=== PATIENT | female | born 2005 | race Caucasian/White ===

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

== ENCOUNTER → 2024-02-26 | Outpatient (CLI) | payer OTHER ==
[~2024-02-26] MED LIST changes: +FLUO-365; -FLUO20CA22
[2024-02-26 12:40] LABS: APPEARANCE, URINE HAZY (CLEAR); BACTERIA, URINE AUTO 1+ (NEGATIVE); BILIRUBIN, URINE AUTO NEGATIVE (NEGATIVE); BLOOD, URINE BLOOD 1+ (NEGATIVE); COLOR, URINE YELLOW (YELLOW); GLUCOSE, URINE (UA) AUTO NEGATIVE (NEGATIVE); KETONE, URINE AUTO NEGATIVE (NEGATIVE); LEUKOCYTE ESTERASE, URINE AUTO NEGATIVE (NEGATIVE); MUCUS, URINE SMALL (NEGATIVE); NITRITE, URINE AUTO NEGATIVE (NEGATIVE); PROTEIN, URINE AUTO 3+ mg/dL (NEGATIVE); RBC, URINE AUTO 3 /HPF (0-3); SPECIFIC GRAVITY URINE AUTO 1.019 (1.002-1.035); SQUAMOUS EPITHELIAL CELL UR AU 4 /HPF (0-6); UROBILINOGEN, URINE AUTO 0.2 mg/dL (0.0-2.0); WBC, URINE AUTO 2 /HPF (0-3)
[2024-02-26 13:11] LABS: THYROID STIMULATING HORMONE 0.987 uIU/ML (0.48-4.17)
[2024-02-26 13:21] LABS: ALBUMIN 3.3 G/DL (3.2-5.2); ALKALINE PHOSPHATASE 61 U/L (46-116); ALT/SGPT 18 U/L (7.0-40); AST/SGOT 10 U/L (<34); BILIRUBIN,TOTAL 0.3 MG/DL (0.3-1.2); BLOOD UREA NITROGEN 10 MG/DL (9-23); CALCIUM LEVEL 9.2 MG/DL (8.5-10.1); CARBON DIOXIDE LEVEL 26 MMOL/L (20-31); CHLORIDE LEVEL 106 MMOL/L (98-107); CHOLESTEROL LEVEL 268 MG/DL (<200); CHOLESTEROL RISK RATIO 6.56 (<5); CREATININE FOR GFR 0.58 MG/DL (0.55-1.30); GLUCOSE, FASTING 85 MG/DL (60-100); HDL CHOLESTEROL 40.8 MG/DL (>40); LDL CHOLESTEROL 184.6 MG/DL (<100); NON-HDL-C 227.2 MG/DL; POTASSIUM SERUM 4.4 MMOL/L (3.5-5.1); SODIUM LEVEL 140 MMOL/L (136-145); TOTAL PROTEIN 6.5 G/DL (5.7-8.2); TRIGLYCERIDES LEVEL 213 MG/DL (<150)
[2024-02-27 16:32] LABS: LDL DIRECT 203 mg/dL (<110)
== END ==
LOC: M LAB 11:15
PROVIDERS: ATTEND Pediatrics Pediatric Cardiology
DX: E78.2 Mixed hyperlipidemia (principal)

== ENCOUNTER 2024-04-11 18:29 | Emergency (ER) | payer OTHER ==
[~2024-04-11] VITALS: Ht 165.1 cm; Wt 95.5 kg
[2024-04-11] MEDS ORDERED: ATOR1TAB19 (18:54)
[2024-04-11] MEDS ORDERED: LABE100T6 (18:54)
[2024-04-11 20:27] VITALS: BP 168/82; TEMP 97.2; O2SAT 97
== END 2024-04-11 20:30 | disposition home or self-care (01) ==
LOC: EDBD 18:29 → M ED 18:29
DX: R06.4 Hyperventilation (principal); R55 Syncope and collapse; K58.9 Irritable bowel syndrome, unspecified; F41.9 Anxiety disorder, unspecified; F32.A Depression, unspecified; D64.9 Anemia, unspecified; Z79.3 Long term (current) use of hormonal contraceptives; Z79.899 Other long term (current) drug therapy

== ENCOUNTER → 2024-05-29 | Outpatient (REF) | payer OTHER ==
[~2024-05-29] MED LIST changes: +ATOR1TAB19; +LABE100T6
[2024-05-29 14:29] LABS: BASO # 0.1 10^3/uL (0.0-0.2); BASO % 0.5 % (0.0-1.0); EOS # 0.4 10^3/uL (0.0-0.5); EOS % 4.2 % (0.0-3.0); HEMATOCRIT 42.9 % (36.0-47.0); HEMOGLOBIN 14.4 g/dl (12.0-15.5); LYMPH # 3.3 10^3/uL (1.5-5.0); LYMPH % 33.3 % (24.0-44.0); MEAN CORPUSCULAR HEMOGLOBIN 27.9 pg (27.0-33.0); MEAN CORPUSCULAR HGB CONC 33.6 g/dl (32.0-36.5); MEAN CORPUSCULAR VOLUME 83.1 fl (80.0-96.0); MONO # 0.7 10^3/uL (0.0-0.8); NEUTROPHILS # 5.3 10^3/uL (1.5-8.5); NEUTROPHILS % 54.4 % (36.0-66.0); PLATELET COUNT, AUTOMATED 362 10^3/uL (150-450); RED BLOOD COUNT 5.16 10^6/uL (4.00-5.40); WHITE BLOOD COUNT 9.8 10^3/uL (4.0-10.0)
[2024-05-29 15:46] LABS: THYROID STIMULATING HORMONE 1.135 uIU/ML (0.48-4.17)
[2024-05-29 16:00] LABS: ALBUMIN 3.2 G/DL (3.2-5.2); ALKALINE PHOSPHATASE 76 U/L (46-116); ALT/SGPT 20 U/L (7.0-40); AST/SGOT 11 U/L (<34); BILIRUBIN,TOTAL 0.4 MG/DL (0.3-1.2); BLOOD UREA NITROGEN 14 MG/DL (9-23); CALCIUM LEVEL 9.8 MG/DL (8.5-10.1); CARBON DIOXIDE LEVEL 27 MMOL/L (20-31); CHLORIDE LEVEL 108 MMOL/L (98-107); CHOLESTEROL LEVEL 225 MG/DL (<200); CREATININE FOR GFR 0.59 MG/DL (0.55-1.30); GLUCOSE, FASTING 73 MG/DL (60-100); HDL CHOLESTEROL 41.6 MG/DL (>40); NON-HDL-C 183.4 MG/DL; POTASSIUM SERUM 4.5 MMOL/L (3.5-5.1); SODIUM LEVEL 141 MMOL/L (136-145); TOTAL PROTEIN 6.8 G/DL (5.7-8.2); TRIGLYCERIDES LEVEL 197 MG/DL (<150)
== END ==
LOC: M LABDRWAD 13:28
PROVIDERS: ATTEND Nurse Practitioner Family
DX: O16.9 Unspecified maternal hypertension, unspecified trimester (principal); F41.9 Anxiety disorder, unspecified; Z3A.00 Weeks of gestation of pregnancy not specified

== ENCOUNTER → 2024-08-14 | Outpatient (REF) | payer OTHER ==
[2024-08-14 19:06] LABS: ALBUMIN 3.6 G/DL (3.2-5.2); ALKALINE PHOSPHATASE 62 U/L (35-104); ALT/SGPT 22 U/L (7.0-40); AST/SGOT 16 U/L (<34); BILIRUBIN,TOTAL 0.5 MG/DL (0.3-1.2); BLOOD UREA NITROGEN 9 MG/DL (9-23); CALCIUM LEVEL 9.9 MG/DL (8.5-10.1); CARBON DIOXIDE LEVEL 27 MMOL/L (20-31); CHLORIDE LEVEL 106 MMOL/L (98-107); CHOLESTEROL LEVEL 344 MG/DL (<200); CHOLESTEROL RISK RATIO 7.38 (<5); CREATININE FOR GFR 0.59 MG/DL (0.55-1.30); GLUCOSE, FASTING 83 MG/DL (60-100); HDL CHOLESTEROL 46.6 MG/DL (>40); NON-HDL-C 297.4 MG/DL; POTASSIUM SERUM 4.1 MMOL/L (3.5-5.1); SODIUM LEVEL 141 MMOL/L (136-145); TOTAL PROTEIN 7.2 G/DL (5.7-8.2); TRIGLYCERIDES LEVEL 437 MG/DL (<150)
== END ==
LOC: M LABDRWAD 17:24
PROVIDERS: ATTEND Pediatrics Pediatric Cardiology
DX: E78.01 Familial hypercholesterolemia (principal)

== ENCOUNTER 2024-09-10 18:30 | Emergency (ER) | payer OTHER ==
[~2024-09-10] VITALS: Ht 170.2 cm; Wt 103.6 kg
[2024-09-10 18:32] VITALS: TEMP 97
[2024-09-10 20:14] LABS: BASO % 0.2 % (0.0-1.0); EOS # 0.4 10^3/uL (0.0-0.5); EOS % 2.9 % (0.0-3.0); HEMATOCRIT 36.5 % (36.0-47.0); HEMOGLOBIN 12.7 g/dl (12.0-15.5); LYMPH # 2.9 10^3/uL (1.5-5.0); LYMPH % 22.6 % (24.0-44.0); MEAN CORPUSCULAR HEMOGLOBIN 28.5 pg (27.0-33.0); MEAN CORPUSCULAR HGB CONC 34.8 g/dl (32.0-36.5); MONO % 7.7 % (2.0-8.0); NEUTROPHILS # 8.4 10^3/uL (1.5-8.5); NEUTROPHILS % 66.1 % (36.0-66.0); PLATELET COUNT, AUTOMATED 286 10^3/uL (150-450); RED BLOOD COUNT 4.45 10^6/uL (4.00-5.40); WHITE BLOOD COUNT 12.7 10^3/uL (4.0-10.0)
[2024-09-10 20:40] LABS: HCG, SERUM QUALITATIVE POSITIVE (NEGATIVE)
[2024-09-10 20:42] LABS: BLOOD UREA NITROGEN 10 MG/DL (9-23); CALCIUM LEVEL 9.1 MG/DL (8.5-10.1); CARBON DIOXIDE LEVEL 28 MMOL/L (20-31); CHLORIDE LEVEL 104 MMOL/L (98-107); CREATININE FOR GFR 0.51 MG/DL (0.55-1.30); GLUCOSE, FASTING 103 MG/DL (60-100); MAGNESIUM LEVEL 1.8 MG/DL (1.8-2.4); POTASSIUM SERUM 3.7 MMOL/L (3.5-5.1); SODIUM LEVEL 140 MMOL/L (136-145)
[2024-09-10 20:45] LABS: THYROID STIMULATING HORMONE 1.405 uIU/ML (0.48-4.17)
[2024-09-10 22:07] LABS: HCG, SERUM QUANTITATIVE 82558.2 MIU/ML (<4.2)
[2024-09-10 22:30] VITALS: BP 135/83; O2SAT 99
== END 2024-09-10 22:52 | disposition home or self-care (01) ==
LOC: M ED 18:30
DX: R00.2 Palpitations (principal); T43.225A Adverse effect of selective serotonin reuptake inhibitors, initial encounter; I10 Essential (primary) hypertension; F41.9 Anxiety disorder, unspecified; F32.A Depression, unspecified; J30.89 Other allergic rhinitis; J30.81 Allergic rhinitis due to animal (cat) (dog) hair and dander; Z79.899 Other long term (current) drug therapy

== ENCOUNTER 2024-10-03 22:44 | Emergency (ER) | payer OTHER ==
[~2024-10-03] VITALS: Ht 165.1 cm; Wt 104.9 kg
[2024-10-03 23:47] LABS: BASO % 0.3 % (0.0-1.0); EOS # 0.3 10^3/uL (0.0-0.5); EOS % 2.8 % (0.0-3.0); HEMATOCRIT 37.1 % (36.0-47.0); HEMOGLOBIN 13.1 g/dl (12.0-15.5); LYMPH % 36.3 % (24.0-44.0); MEAN CORPUSCULAR HEMOGLOBIN 28.8 pg (27.0-33.0); MEAN CORPUSCULAR HGB CONC 35.3 g/dl (32.0-36.5); MEAN CORPUSCULAR VOLUME 81.5 fl (80.0-96.0); MONO # 0.8 10^3/uL (0.0-0.8); MONO % 7.2 % (2.0-8.0); NEUTROPHILS # 5.8 10^3/uL (1.5-8.5); NEUTROPHILS % 52.9 % (36.0-66.0); PLATELET COUNT, AUTOMATED 289 10^3/uL (150-450); RED BLOOD COUNT 4.55 10^6/uL (4.00-5.40); WHITE BLOOD COUNT 10.9 10^3/uL (4.0-10.0)
[2024-10-03 23:48] LABS: APPEARANCE, URINE HAZY (CLEAR); BACTERIA, URINE AUTO NEGATIVE (NEGATIVE); BILIRUBIN, URINE AUTO NEGATIVE (NEGATIVE); BLOOD, URINE BLOOD 1+ (NEGATIVE); COLOR, URINE STRAW (YELLOW); GLUCOSE, URINE (UA) AUTO NEGATIVE (NEGATIVE); KETONE, URINE AUTO NEGATIVE (NEGATIVE); LEUKOCYTE ESTERASE, URINE AUTO NEGATIVE (NEGATIVE); MUCUS, URINE SMALL (NEGATIVE); NITRITE, URINE AUTO NEGATIVE (NEGATIVE); PROTEIN, URINE AUTO 3+ mg/dL (NEGATIVE); RBC, URINE AUTO 1 /HPF (0-3); SPECIFIC GRAVITY URINE AUTO 1.008 (1.002-1.035); SQUAMOUS EPITHELIAL CELL UR AU 4 /HPF (0-6); UROBILINOGEN, URINE AUTO 0.2 mg/dL (0.0-2.0); WBC, URINE AUTO 4 /HPF (0-3)
[2024-10-04 00:08] LABS: URIC ACID 4.7 MG/DL (3.1-7.8)
[2024-10-04 00:11] LABS: ALBUMIN 2.6 G/DL (3.2-5.2); ALKALINE PHOSPHATASE 47 U/L (35-104); ALT/SGPT 16 U/L (7.0-40); AST/SGOT 10 U/L (<34); BILIRUBIN,TOTAL 0.2 MG/DL (0.3-1.2); BLOOD UREA NITROGEN 10 MG/DL (9-23); CALCIUM LEVEL 9.1 MG/DL (8.5-10.1); CARBON DIOXIDE LEVEL 27 MMOL/L (20-31); CHLORIDE LEVEL 103 MMOL/L (98-107); CREATININE FOR GFR 0.49 MG/DL (0.55-1.30); GLUCOSE, FASTING 93 MG/DL (60-100); MAGNESIUM LEVEL 1.6 MG/DL (1.8-2.4); POTASSIUM SERUM 3.9 MMOL/L (3.5-5.1); SODIUM LEVEL 138 MMOL/L (136-145); TOTAL PROTEIN 6.1 G/DL (5.7-8.2)
[2024-10-04 00:26] LABS: HCG, SERUM QUANTITATIVE 50243.2 MIU/ML (<4.2)
[2024-10-04 00:37] LABS: INR 0.94; PROTHROMBIN TIME 12.9 SECONDS (12.5-14.5)
[2024-10-04] MEDS: FAMOTIDINE 20 MG TAB PO ONE (04:26)
[2024-10-04] MEDS: MAGNESIUM OXIDE 400MG TAB (MAG-OX) PO ONE (04:26)
[2024-10-04] MEDS ORDERED: FAMO20TA PO (04:44)
[2024-10-04 05:00] VITALS: BP 140/69; TEMP 97.5; O2SAT 99
== END 2024-10-04 05:03 | disposition home or self-care (01) ==
LOC: M ED 22:44
DX: O99.611 Diseases of the digestive system complicating pregnancy, first trimester (principal); O10.011 Pre-existing essential hypertension complicating pregnancy, first trimester; O99.331 Smoking (tobacco) complicating pregnancy, first trimester; Z3A.10 10 weeks gestation of pregnancy; Z79.899 Other long term (current) drug therapy

== ENCOUNTER → 2024-10-11 | Outpatient (CLI) | payer OTHER ==
[~2024-10-11] MED LIST changes: +FAMO20TA PO
[2024-10-11 15:45] LABS: HEMATOCRIT 37.4 % (36.0-47.0); HEMOGLOBIN 13.1 g/dl (12.0-15.5); MEAN CORPUSCULAR HEMOGLOBIN 28.5 pg (27.0-33.0); MEAN CORPUSCULAR VOLUME 81.3 fl (80.0-96.0); PLATELET COUNT, AUTOMATED 283 10^3/uL (150-450)
[2024-10-11 15:51] LABS: LDH LACTATE DEHYDROGENASE 194 U/L (120-246)
[2024-10-11 15:52] LABS: ALT/SGPT 15 U/L (7.0-40); AST/SGOT 16 U/L (<34); BILIRUBIN,TOTAL 0.2 MG/DL (0.3-1.2)
[2024-10-11 16:20] LABS: CREATININE,RANDOM URINE 161.7 MG/DL
[2024-10-11 16:24] LABS: TOTAL PROTEIN,RANDOM URINE 1038.5 MG/DL (0.0-14.0)
[2024-10-11 16:25] LABS: HIV 1&2 SCREEN NEGATIVE (NEGATIVE)
[2024-10-11 16:33] LABS: HEPATITIS C VIRUS ABY INDEX 0.07 INDEX (<0.8); URIC ACID 4.4 MG/DL (3.1-7.8)
[2024-10-11 17:02] LABS: Trichomonas vaginalis (AMP) NOT DETECTED (NEGATIVE)
[2024-10-11 17:26] LABS: GC DNA AMPLIFICATION NEGATIVE (NEGATIVE)
== END ==
LOC: M PLALAB 12:33
PROVIDERS: ATTEND Advanced Practice Midwife
DX: Z34.81 Encounter for supervision of other normal pregnancy, first trimester (principal)

== ENCOUNTER → 2024-10-18 | Outpatient (CLI) | payer OTHER ==
[2024-10-18 14:52] LABS: ALBUMIN 2.3 G/DL (3.2-5.2); BLOOD UREA NITROGEN < 5 MG/DL (9-23); CALCIUM LEVEL 8.4 MG/DL (8.5-10.1); CARBON DIOXIDE LEVEL 25 MMOL/L (20-31); CHLORIDE LEVEL 104 MMOL/L (98-107); GLUCOSE, FASTING 102 MG/DL (60-100); PHOSPHORUS LEVEL 3.8 MG/DL (2.5-4.9); POTASSIUM SERUM 3.8 MMOL/L (3.5-5.1); SODIUM LEVEL 139 MMOL/L (136-145)
== END ==
LOC: M PLALAB 09:51
PROVIDERS: ATTEND Advanced Practice Midwife
DX: O12.10 Gestational proteinuria, unspecified trimester (principal)

== ENCOUNTER → 2024-10-21 | Outpatient (CLI) | payer OTHER ==
[2024-10-22 15:36] LABS: TOTAL PROTEIN 24 HOUR URINE 6959.8 MG/24HR (50-80); URINE TOTAL PROTEIN 605.2 MG/DL (0-14)
== END ==
LOC: M PLALAB 13:40
PROVIDERS: ATTEND Advanced Practice Midwife
DX: O12.11 Gestational proteinuria, first trimester (principal)

== ENCOUNTER 2024-11-03 21:17 | Emergency (ER) | payer OTHER ==
[~2024-11-03] VITALS: Ht 162.6 cm; Wt 104.5 kg
[2024-11-03 22:12] LABS: APPEARANCE, URINE HAZY (CLEAR); BACTERIA, URINE AUTO NEGATIVE (NEGATIVE); BILIRUBIN, URINE AUTO NEGATIVE (NEGATIVE); BLOOD, URINE BLOOD 1+ (NEGATIVE); COLOR, URINE YELLOW (YELLOW); GLUCOSE, URINE (UA) AUTO NEGATIVE (NEGATIVE); KETONE, URINE AUTO NEGATIVE (NEGATIVE); LEUKOCYTE ESTERASE, URINE AUTO TRACE (NEGATIVE); NITRITE, URINE AUTO NEGATIVE (NEGATIVE); PROTEIN, URINE AUTO 3+ mg/dL (NEGATIVE); RBC, URINE AUTO 1 /HPF (0-3); SPECIFIC GRAVITY URINE AUTO 1.009 (1.002-1.035); SQUAMOUS EPITHELIAL CELL UR AU 4 /HPF (0-6); UROBILINOGEN, URINE AUTO 0.2 mg/dL (0.0-2.0); WBC, URINE AUTO 3 /HPF (0-3)
[2024-11-03 23:21] VITALS: TEMP 97.7; O2SAT 98
[2024-11-03 23:40] VITALS: BP 148/78
== END 2024-11-04 00:42 | disposition left against medical advice (07) ==
LOC: EDBD 21:17 → M ED 21:17
DX: Z53.21 Procedure and treatment not carried out due to patient leaving prior to being seen by health care provider (principal)

== ENCOUNTER → 2024-12-05 | Outpatient (CLI) | payer OTHER | LOC: M WHC 12:16 | PROVIDERS: ATTEND Advanced Practice Midwife | DX: Z34.82 Encounter for supervision of other normal pregnancy, second trimester (principal) ==

== ENCOUNTER → 2025-02-11 | Outpatient (CLI) | payer OTHER ==
[~2025-02-11] MED LIST changes: +ALL10TAB2 PO; +ECOT81TA5 PO; +LABE20TAB PO; +PREN1CHW6 PO
[2025-02-11 17:59] LABS: PLATELET COUNT, AUTOMATED 274 10^3/uL (150-450)
[2025-02-11 18:26] LABS: GLUCOSE CHALLENGE TEST 1 HOUR 151 MG/DL (LESS THAN 140)
[2025-02-11 18:40] LABS: Trichomonas vaginalis (AMP) NOT DETECTED (NEGATIVE)
[2025-02-11 19:01] LABS: HIV 1&2 SCREEN NEGATIVE (NEGATIVE)
[2025-02-11 19:05] LABS: GC DNA AMPLIFICATION NEGATIVE (NEGATIVE)
[2025-02-11 19:09] LABS: HEPATITIS C VIRUS ABY INDEX 0.10 INDEX (<0.8)
== END ==
LOC: M PLALAB 13:07
PROVIDERS: ATTEND Advanced Practice Midwife
DX: Z34.82 Encounter for supervision of other normal pregnancy, second trimester (principal)

== ENCOUNTER → 2025-02-18 | Outpatient (CLI) | payer OTHER | LOC: M LAB 07:53 | PROVIDERS: ATTEND Advanced Practice Midwife | DX: O99.810 Abnormal glucose complicating pregnancy (principal); Z3A.00 Weeks of gestation of pregnancy not specified ==

== ENCOUNTER 2025-02-25 12:29 | Outpatient (CLI) | payer OTHER ==
[~2025-02-25] VITALS: Ht 165.1 cm; Wt 112.5 kg
[2025-02-25] MEDS ORDERED: LABE300T3 PO (12:54)
[2025-02-25] MEDS ORDERED: RA M500C PO (12:54)
[2025-02-25 12:55] VITALS: BP 142/68
[2025-02-25 13:11] VITALS: BP 129/56
[2025-02-25 13:26] VITALS: BP 113/59
[2025-02-25 13:41] VITALS: BP 110/56
== END 2025-02-25 14:10 | disposition home or self-care (01) ==
LOC: M LDO 12:29
PROVIDERS: ATTEND Specialist
DX: O28.8 Other abnormal findings on antenatal screening of mother (principal); O10.013 Pre-existing essential hypertension complicating pregnancy, third trimester; O34.219 Maternal care for unspecified type scar from previous cesarean delivery; O99.333 Smoking (tobacco) complicating pregnancy, third trimester; F17.290 Nicotine dependence, other tobacco product, uncomplicated; Z87.59 Personal history of other complications of pregnancy, childbirth and the puerperium; Z3A.31 31 weeks gestation of pregnancy
CPT/HCPCS: 59025; G0463

== ENCOUNTER 2025-02-26 23:35 | Outpatient (CLI) | payer OTHER ==
[~2025-02-26] VITALS: Ht 165.1 cm; Wt 111.6 kg
[~2025-02-26 23:35] MED LIST changes: -AMOX875T2 PO
[2025-02-26 23:52] VITALS: BP 139/78
[2025-02-27] MEDS ORDERED: HOME MED LIST COMPLETE! XX SCH (00:05)
[2025-02-27 00:34] LABS: KETONE, URINE AUTO RFX TRACE mg/dL (NEGATIVE); MUCUS, URINE RFX SMALL (NEGATIVE); NITRITE, URINE AUTO RFX NEGATIVE (NEGATIVE); RBC, URINE AUTO RFX 57 /HPF (0-3); SQUAM EPITHELIAL CELL UR AURFX 8 /HPF (0-6); TRANSITIONAL EPITHELIAL AU RFX 4 /HPF
[2025-02-27] MEDS: cefTRIAXone SOD 2 GM in DEXTROSE 5% (D5W) ADV/MINI-BAG 50 ML IV SCH (00:41)
[2025-02-27] MEDS: NS 500 ML IV ONE (00:41)
[2025-02-27] MEDS: ACETAMINOPHEN 500 MG TAB PO ONE (00:42)
[2025-02-27 00:43] LABS: LEUKOCYTE ESTERASE UR AUTO RFX 2+ (NEGATIVE); WBC, URINE AUTO RFX TNTC /HPF (0-3)
[2025-02-27 00:44] LABS: PLATELET COUNT, AUTOMATED 261 10^3/uL (150-450)
[2025-02-27 01:13] LABS: CALCIUM LEVEL 8.6 MG/DL (8.5-10.1); CARBON DIOXIDE LEVEL 25 MMOL/L (20-31); CHLORIDE LEVEL 104 MMOL/L (98-107); CREATININE FOR GFR 0.54 MG/DL (0.55-1.30); GLOMERULAR FILTRATION RATE > 90.0 (>60); PHOSPHORUS LEVEL 3.6 MG/DL (2.5-4.9); POTASSIUM SERUM 4.0 MMOL/L (3.5-5.1); SODIUM LEVEL 140 MMOL/L (136-145)
[2025-02-27] MEDS: PROMETHAZINE 25MG/ML 1ML VIAL IV ONE (04:35)
[2025-02-27] MEDS: BUTORPHANOL 2 MG/ML 1 ML VIAL IV ONE (04:36)
[2025-02-27 07:46] VITALS: BP 132/63
[2025-02-27] MEDS: LABETALOL 100 MG TAB PO SCH (09:00)
[2025-02-27 11:26] VITALS: BP 132/59
[2025-02-27 12:21] VITALS: BP 112/53
[2025-02-27] MEDS: SERTRALINE HCL 25 MG TABLET PO SCH (12:22)
[2025-02-27] MEDS ORDERED: AMOX875T2 PO (13:45)
== END 2025-02-27 13:21 | disposition home or self-care (01) ==
LOC: M LDO 23:35
PROVIDERS: ATTEND Advanced Practice Midwife
DX: O26.893 Other specified pregnancy related conditions, third trimester (principal); O10.013 Pre-existing essential hypertension complicating pregnancy, third trimester; O34.219 Maternal care for unspecified type scar from previous cesarean delivery; O09.293 Supervision of pregnancy with other poor reproductive or obstetric history, third trimester; O99.333 Smoking (tobacco) complicating pregnancy, third trimester; O09.213 Supervision of pregnancy with history of pre-term labor, third trimester; M54.50 Low back pain, unspecified; F17.290 Nicotine dependence, other tobacco product, uncomplicated; Z3A.31 31 weeks gestation of pregnancy
CPT/HCPCS: 59025; 76775; 80069; 81001; 85027; 87086; 96365; 96366; G0463; J0595; J0696; J2550

== ENCOUNTER → 2025-02-26 | Outpatient (REF) | payer OTHER ==
[~2025-02-26] MED LIST changes: +AMOX875T2 PO; +LABE300T3 PO; -PROZ20CA11 PO; +PROZ20CA12 PO; +RA M500C PO
== END ==
LOC: M SFHCWAGY 13:10
PROVIDERS: ATTEND Specialist
DX: N39.0 Urinary tract infection, site not specified (principal)

== ENCOUNTER → 2025-03-05 | Outpatient (CLI) | payer OTHER ==
[~2025-03-05] MED LIST changes: +AMOX875T2 PO; -IBUP-1022 PO; +IBUP600T42 PO
== END ==
LOC: M WHC 10:35
PROVIDERS: ATTEND Obstetrics & Gynecology
DX: O28.8 Other abnormal findings on antenatal screening of mother (principal); Z3A.32 32 weeks gestation of pregnancy

== ENCOUNTER → 2025-03-11 | Outpatient (CLI) | payer OTHER ==
[~2025-03-11] MED LIST changes: +IBUP-1022 PO; -IBUP600T42 PO
== END ==
LOC: M RAD 15:21
PROVIDERS: ATTEND Advanced Practice Midwife
DX: O10.013 Pre-existing essential hypertension complicating pregnancy, third trimester (principal); Z3A.33 33 weeks gestation of pregnancy

== ENCOUNTER 2025-03-26 21:51 | Outpatient (CLI) | payer OTHER ==
[~2025-03-26] VITALS: Ht 165.1 cm; Wt 114.0 kg
[2025-03-26] VITALS (8 sets, daily range): BP systolic 136–143; BP diastolic 66–76; TEMP 97.8
[2025-03-26] MEDS: FIORICET TAB PO ONE (22:38)
[2025-03-26 23:05] LABS: TOTAL PROTEIN,RANDOM URINE 637.2 MG/DL (0.0-14.0)
[2025-03-26 23:13] LABS: PLATELET COUNT, AUTOMATED 277 10^3/uL (150-450)
[2025-03-26 23:27] LABS: LDH LACTATE DEHYDROGENASE 153 U/L (120-246)
[2025-03-26 23:28] LABS: ALT/SGPT 15 U/L (7.0-40); AST/SGOT 16 U/L (<34); CREATININE FOR GFR 0.39 MG/DL (0.55-1.30); GLOMERULAR FILTRATION RATE > 90.0 (>60)
[2025-03-27 00:13] VITALS: BP 139/70
== END 2025-03-27 00:34 | disposition home or self-care (01) ==
LOC: M LDO 21:51
PROVIDERS: ATTEND Advanced Practice Midwife
DX: O10.013 Pre-existing essential hypertension complicating pregnancy, third trimester (principal); O34.219 Maternal care for unspecified type scar from previous cesarean delivery; O99.333 Smoking (tobacco) complicating pregnancy, third trimester; O26.833 Pregnancy related renal disease, third trimester; Z87.59 Personal history of other complications of pregnancy, childbirth and the puerperium; N04.9 Nephrotic syndrome with unspecified morphologic changes; F17.290 Nicotine dependence, other tobacco product, uncomplicated; Z3A.35 35 weeks gestation of pregnancy
CPT/HCPCS: 36415; 59025; 82247; 82570; 83615; 84156; 84450; 84460; 84550; 85027; G0463

== ENCOUNTER 2025-03-29 16:26 | Inpatient (IN) | payer OTHER ==
[2025-03-29] VITALS (16 sets, daily range): BP systolic 115–154; BP diastolic 57–86
[~2025-03-29] VITALS: Ht 165.1 cm; Wt 113.6 kg
[~2025-03-29 16:26] MED LIST changes: -IBUP-1022 PO; +IBUP600T42 PO
[2025-03-29 18:01] LABS: PLATELET COUNT, AUTOMATED 253 10^3/uL (150-450)
[2025-03-29 18:27] LABS: ALT/SGPT 14 U/L (7.0-40); AST/SGOT 13 U/L (<34); CREATININE FOR GFR 0.45 MG/DL (0.55-1.30); GLOMERULAR FILTRATION RATE > 90.0 (>60); LDH LACTATE DEHYDROGENASE 140 U/L (120-246)
[2025-03-29] MEDS: ACETAMINOPHEN 500 MG TAB PO ONE (18:37)
[2025-03-29 18:49] LABS: TOTAL PROTEIN,RANDOM URINE 1462.3 MG/DL (0.0-14.0)
[2025-03-29] MEDS: BETAMETHASONE SOLUSPAN 6 MG/ML 5 ML VIAL IM ONE (20:54)
[2025-03-29] MEDS: METOCLOPRAMIDE 10 MG TAB PO PRN (20:55)
[2025-03-29] MEDS: MORPHINE 10 MG/ML 1 ML VIAL IV ONE (22:23)
[2025-03-29] MEDS ORDERED: LR 1,000 ML IV SCH (22:40)
[2025-03-29] MEDS: LABETALOL 100 MG TAB PO ONE (22:48)
[2025-03-29] MEDS: LACTATED RINGER'S 1000 ML IV STA (22:48)
[2025-03-29 22:56] LABS: PLATELET COUNT, AUTOMATED 274 10^3/uL (150-450)
[2025-03-29 23:00] LABS: LDH LACTATE DEHYDROGENASE 329 U/L (120-246)
[2025-03-29] MEDS: LR 1,000 ML IV SCH (23:26)
[2025-03-29] MEDS: MAGNESIUM *L&D* 4 GM/100 ML BAG (40 MG/ML) IV ONE (23:26)
[2025-03-29 23:34] LABS: HIV 1&2 SCREEN NEGATIVE (NEGATIVE)
[2025-03-29 23:41] LABS: HEPATITIS C VIRUS ABY INDEX < 0.02 INDEX (<0.8)
[2025-03-29 23:44] LABS: ALT/SGPT 19 U/L (7.0-40); AST/SGOT 44 U/L (<34); CREATININE FOR GFR 0.41 MG/DL (0.55-1.30); GLOMERULAR FILTRATION RATE > 90.0 (>60)
[2025-03-29] MEDS: MAG Sulf (OBGYN) 20GM/500ML 20,000 MG in IV 1 EA IV SCH (23:52)
[2025-03-30] VITALS (42 sets, daily range): BP systolic 85–143; BP diastolic 46–75; TEMP 96.7; O2SAT 96–98
[2025-03-30] MEDS: ACETAMINOPHEN 500 MG TAB PO ONE (06:05)
[2025-03-30] MEDS ORDERED: HOME MED LIST COMPLETE! XX SCH (08:30)
[2025-03-30] MEDS ORDERED: MORPHINE PRES-FREE INJ 10 MG/10 ML VIAL As Ordered ONE (08:58)
[2025-03-30] MEDS ORDERED: ONDANSETRON 4MG 2ML VIAL As Ordered ONE (09:00)
[2025-03-30] MEDS: ceFAZolin SODIUM 3 GM in DEXTROSE 5% (D5W) MINI-BAG PLU 100 ML IV ONE (09:07)
[2025-03-30] MEDS: BICITRA 30 ML SOLN UDC PO ONE (09:07)
[2025-03-30] MEDS ORDERED: OXYTOCIN 30UNITS IN 0.9% NaCl 500ML IV BAG As Ordered ONE (10:16)
[2025-03-30] MEDS ORDERED: PHENYLephrine 500MCG 5ML (100MCG/ML) SYRINGE As Ordered ONE (10:47)
[2025-03-30 10:49] LABS: CORD GAS ABE A 0.0; CORD GAS HCO3 A 27.8 MMOL/L; CORD GAS O2 SAT A 53.0 %; CORD GAS PCO2 A 58.4 mmHg; CORD GAS PH A 7.295 UNITS; CORD GAS PO2 A 24.4 mmHg; CORD GAS SBC A 23.4 MMOL/L; CORD GAS TCO2 A 29.6 MMOL/L
[2025-03-30] MEDS ORDERED: KETOROLAC 30 MG/ML 1 ML VIAL As Ordered ONE (10:51)
[2025-03-30 10:52] LABS: CORD GAS ABE V -3.7; CORD GAS HCO3 V 21.8 MMOL/L; CORD GAS O2 SAT V 78.2 %; CORD GAS PCO2 V 41.2 mmHg; CORD GAS PH V 7.341 UNITS; CORD GAS PO2 V 34.0 mmHg; CORD GAS SBC V 20.9 MMOL/L; CORD GAS TCO2 V 23.0 MMOL/L
[2025-03-30] MEDS ORDERED: ACETAMINOPHEN 1000MG/100ML IV BAG As Ordered ONE (11:05)
[2025-03-30] MEDS ORDERED: SIMETHICONE 80MG CHEW TAB PO PRN (11:35)
[2025-03-30] MEDS ORDERED: RHOGAM 300MCG (1500IU) INJ IM SCH (11:35)
[2025-03-30] MEDS ORDERED: ACETAMINOPHEN 500 MG TAB PO PRN (11:35)
[2025-03-30] MEDS ORDERED: PERCOCET 5MG/325MG TAB PO PRN ×2 (11:35)
[2025-03-30] MEDS ORDERED: CALCIUM CARBONATE 500 MG CHEW U/D PO PRN (11:35)
[2025-03-30] MEDS ORDERED: MORPHINE 4 MG/ML 1 ML VIAL IV PRN (11:35)
[2025-03-30] MEDS ORDERED: ONDANSETRON 4MG 2ML VIAL IV PRN ×2 (11:35→12:10)
[2025-03-30 12:09] LABS: PLATELET COUNT, AUTOMATED 241 10^3/uL (150-450)
[2025-03-30] MEDS ORDERED: **NOTE PATIENT COMMENT** MISC XX SCH (12:10)
[2025-03-30] MEDS ORDERED: NALOXONE INJ 0.4 MG/1 ML VIAL IV PRN ×2 (12:10)
[2025-03-30] MEDS ORDERED: MEPERIDINE 25 MG/ML 1 ML VIAL IV PRN (12:10)
[2025-03-30] MEDS ORDERED: LR 500 ML IV PRN (12:20)
[2025-03-30] MEDS ORDERED: EPIDURAL/PCA KEYS XX PRN (12:20)
[2025-03-30] MEDS ORDERED: MAGNESIUM SULFATE As Ordered ONE (12:30)
[2025-03-30 12:33] LABS: CREATININE FOR GFR 0.46 MG/DL (0.55-1.30); GLOMERULAR FILTRATION RATE > 90.0 (>60)
[2025-03-30] MEDS: SLF 3 ML SYR IV SCH (15:19)
[2025-03-30] MEDS: SERTRALINE HCL 25 MG TABLET PO SCH (15:20)
[2025-03-30] MEDS: ENOXAPARIN 40 MG/0.4 ML SYRINGE (J1650 PER 10MG) SC SCH (17:07)
[2025-03-30] MEDS: KETOROLAC 30 MG/ML 1 ML VIAL IV SCH (17:09)
[2025-03-30] MEDS: DOCUSATE SODIUM 100 MG CAPSULE PO SCH (21:05)
[2025-03-30] MEDS: LABETALOL 100 MG TAB PO SCH (21:06)
[2025-03-30] MEDS: diphenhydrAMINE 50 MG/ML VIAL IV PRN (22:32)
[2025-03-31] VITALS (13 sets, daily range): BP systolic 105–147; BP diastolic 56–73; O2SAT 97–98
[2025-03-31 07:29] LABS: PLATELET COUNT, AUTOMATED 225 10^3/uL (150-450)
[2025-03-31 08:38] LABS: LDH LACTATE DEHYDROGENASE 170 U/L (120-246)
[2025-03-31 08:39] LABS: ALT/SGPT 14 U/L (7.0-40); AST/SGOT 16 U/L (<34); CREATININE FOR GFR 0.49 MG/DL (0.55-1.30); GLOMERULAR FILTRATION RATE > 90.0 (>60)
[2025-03-31] MEDS: PRENATAL VITAMINS CHEWABLE TABLET PO SCH (09:48)
[2025-03-31] MEDS: IBUPROFEN 800 MG TAB PO SCH (13:26)
[2025-04-01 02:00] VITALS: BP 131/66; O2SAT 98
[2025-04-01 05:43] VITALS: BP 142/65; O2SAT 96
[2025-04-01 09:30] VITALS: BP 130/86
[2025-04-01 09:39] VITALS: BP 130/86
[2025-04-01] MEDS: MEASLES,MUMPS,RUBELLA VACCINE INJ (MMR-II) SC.IMMUN ONE (09:44)
== END 2025-04-01 14:00 | disposition home or self-care (01) | DRG 540 ==
LOC: M LDO 16:26 → M LDI 22:38 → M OBS 03-31 10:57
PROVIDERS: ADMIT Obstetrics & Gynecology; ATTEND Obstetrics & Gynecology
PROC: 10D00Z1 Extraction of Products of Conception, Low, Open Approach (ICD-10-PCS; principal; 2025-03-30 08:53)
DX: O11.4 Pre-existing hypertension with pre-eclampsia, complicating childbirth (principal); Z37.0 Single live birth; O34.211 Maternal care for low transverse scar from previous cesarean delivery; Z3A.35 35 weeks gestation of pregnancy; O10.02 Pre-existing essential hypertension complicating childbirth

== ENCOUNTER 2025-04-12 01:57 | Emergency (ER) | payer OTHER ==
[~2025-04-12] VITALS: Ht 165.1 cm; Wt 97.7 kg
[2025-04-12 01:58] VITALS: BP 137/97; TEMP 96.9; O2SAT 98
== END 2025-04-12 04:49 | disposition left against medical advice (07) ==
LOC: M ED 01:57
DX: Z53.21 Procedure and treatment not carried out due to patient leaving prior to being seen by health care provider (principal)

== ENCOUNTER 2025-04-26 01:37 | Emergency (ER) | payer OTHER ==
[~2025-04-26] VITALS: Ht 165.1 cm; Wt 103.0 kg
[2025-04-26 02:16] VITALS: BP 143/70; TEMP 96.8; O2SAT 97
[2025-04-26 02:33] LABS: BASO # 0.1 10^3/uL (0.0-0.2); BASO % 0.5 % (0.0-1.0); EOS # 0.6 10^3/uL (0.0-0.5); EOS % 5.5 % (0.0-3.0); LYMPH # 3.9 10^3/uL (1.5-5.0); LYMPH % 34.8 % (24.0-44.0); MONO # 1.0 10^3/uL (0.0-0.8); MONO % 8.7 % (2.0-8.0); NEUTROPHILS # 5.6 10^3/uL (1.5-8.5); NEUTROPHILS % 50.1 % (36.0-66.0); PLATELET COUNT, AUTOMATED 308 10^3/uL (150-450)
[2025-04-26 02:56] LABS: CALCIUM LEVEL 9.3 MG/DL (8.5-10.1); CARBON DIOXIDE LEVEL 27 MMOL/L (20-31); CHLORIDE LEVEL 103 MMOL/L (98-107); CREATININE FOR GFR 0.65 MG/DL (0.55-1.30); GLOMERULAR FILTRATION RATE > 90.0 (>60); POTASSIUM SERUM 3.8 MMOL/L (3.5-5.1); SODIUM LEVEL 139 MMOL/L (136-145)
== END 2025-04-26 02:51 | disposition left against medical advice (07) ==
LOC: M ED 01:37
DX: Z53.21 Procedure and treatment not carried out due to patient leaving prior to being seen by health care provider (principal)

== ENCOUNTER 2025-05-02 20:44 | Emergency (ER) | payer OTHER ==
[~2025-05-02] VITALS: Ht 162.6 cm; Wt 102.3 kg
[2025-05-03 00:59] VITALS: BP 144/73; TEMP 97.9; O2SAT 100
== END 2025-05-03 03:00 | disposition left against medical advice (07) ==
LOC: M ED 20:44
DX: Z53.21 Procedure and treatment not carried out due to patient leaving prior to being seen by health care provider (principal)

== ENCOUNTER → 2025-06-06 | Outpatient (REF) | payer OTHER ==
[2025-06-06 18:47] LABS: CALCIUM LEVEL 9.2 MG/DL (8.5-10.1); CARBON DIOXIDE LEVEL 25 MMOL/L (20-31); CHLORIDE LEVEL 105 MMOL/L (98-107); CREATININE FOR GFR 0.61 MG/DL (0.55-1.30); GLOMERULAR FILTRATION RATE > 90.0 (>60); PHOSPHORUS LEVEL 3.6 MG/DL (2.5-4.9); POTASSIUM SERUM 4.1 MMOL/L (3.5-5.1); SODIUM LEVEL 141 MMOL/L (136-145)
== END ==
LOC: M LABDRWAD 17:27
PROVIDERS: ATTEND Internal Medicine Nephrology
DX: O12.14 Gestational proteinuria, complicating childbirth (principal)